=== PATIENT | female | born 1985 | race Caucasian/White ===

== ENCOUNTER 2018-07-27 11:38 | Day surgery (SDC) | payer OTHER, MEDICAID ==
[2018-07-27] MEDS ORDERED: LIDOCAINE 2% (SDV) 5 ML INJ (13:56)
[2018-07-27] MEDS ORDERED: PROPOFOL 40 ML (13:56)
[2018-07-27] MEDS ORDERED: ONDANSETRON 4 MG INJ IV (14:00)
[2018-07-27] MEDS ORDERED: PROPOFOL 20 ML (15:33)
== END 2018-07-27 16:30 | disposition home or self-care (01) ==
LOC: GIL 11:38
DX: R19.5 Other fecal abnormalities (principal); K64.8 Other hemorrhoids; K29.50 Unspecified chronic gastritis without bleeding; K20.9 Esophagitis, unspecified
CPT/HCPCS: 43239; 88305; 88312